=== PATIENT | male | born 1965 | race Caucasian/White ===

== ENCOUNTER → 2021-05-01 10:16 | Outpatient (BNVA) | payer OTHER, SELFPAY | PROVIDERS: PCP Internal Medicine; Visit Provider Internal Medicine | DX: Z51.81 Encounter for therapeutic drug level monitoring (principal); F11.10 Opioid abuse, uncomplicated; F14.10 Cocaine abuse, uncomplicated; F17.200 Nicotine dependence, unspecified, uncomplicated | CPT/HCPCS: 80305 ==

== ENCOUNTER 2021-05-09 11:03 | Outpatient (REF) | payer OTHER, SELFPAY ==
[2021-05-09 13:27] LABS: Fentanyl, urine POSITIVE (Not Detect)
== END 2021-05-09 11:04 | disposition home or self-care (01) ==
LOC: HO.LNP 11:03
PROVIDERS: PCP Internal Medicine; Visit Provider Internal Medicine
DX: F11.10 Opioid abuse, uncomplicated (principal); Z79.899 Other long term (current) drug therapy
CPT/HCPCS: 80305; 80307

== ENCOUNTER 2021-06-18 14:33 | Outpatient (REF) | payer OTHER, SELFPAY ==
[2021-06-18 18:48] LABS: Fentanyl, urine POSITIVE (Not Detect)
== END 2021-06-18 14:34 | disposition home or self-care (01) ==
LOC: HO.LNP 14:33
PROVIDERS: PCP Internal Medicine; Visit Provider Internal Medicine
DX: F11.20 Opioid dependence, uncomplicated (principal); Z79.899 Other long term (current) drug therapy
CPT/HCPCS: 80305; 80307

== ENCOUNTER 2022-09-24 19:48 | Emergency (ER) | payer SELFPAY ==
[2022-09-24 19:51] VITALS: BP 123/78; PULSE 99; RESP 18; TEMP 36.7; O2SAT 94; BMI 43.2
--- NOTE | 2022-09-24 19:56 | ED.UPPEXIN ---
HPI - Extremity Injury (Upper) General Chief Complaint: Wound/Laceration <GISSELLE Khan - Last Filed: 09/24/22 19:58> Stated Complaint: finger injury <GISSELLE Khan - Last Filed: 09/24/22 19:58> Time Seen by Provider: 09/24/22 20:41 <GISSELLE Khan - Last Filed: 09/24/22 19:58> Source: patient <Yan Harris MD - Last Filed: 09/24/22 21:52> Mode of arrival: ambulatory <Yan Harris MD - Last Filed: 09/24/22 21:52> Limitations: no limitations <Yan Harris MD - Last Filed: 09/24/22 21:52> History of Present Illness HPI narrative: She got superficial laceration right index finger earlier today while trying to remove can from his blower blast furnace earlier today patient clean the wound at home and applied bacitracin ointment <Yan Harris MD - Last Filed: 09/24/22 21:52> Related Data Home Medications: Home Medications Medication Instructions Recorded Confirmed ibuprofen 600 mg tablet 600 mg PO Q8H PRN 05/01/21 Previous Rx's Medication Instructions Recorded buprenorphine 8 mg-naloxone 2 mg 2 film sublingual DAILY 7 days #14 06/18/21 sublingual film (Suboxone) ea <GISSELLE Khan - Last Filed: 09/24/22 19:58> Allergies/Adverse Reactions: Allergies Allergy/AdvReac Type Severity Reaction Status Date / Time No Known Allergies Allergy Verified 06/18/21 14:55 [No Known Allergies*] <GISSELLE Khan - Last Filed: 09/24/22 19:58> Review of Systems Review of Systems: Yes all other systems are reviewed and are negative <Yan Harris MD - Last Filed: 09/24/22 21:52> [facility] Past Medical History Medical History: Medical History Cocaine abuse Heroin use disorder, mild, abuse Opioid use disorder Pneumonia Tobacco use disorder <GISSELLE Khan - Last Filed: 09/24/22 19:58> Surgical History: Surgical History Hx of foot surgery <GISSELLE Khan - Last Filed: 09/24/22 19:58> Family History Family History: Family History Father Heart attack Alcoholism <GISSELLE Khna - Last Filed: 09/24/22 19:58> Social History Social History: Social History Household Members: Spouse and Children Housing: House Alcohol intake: current Patient Tobacco Use Status: Current everyday Tobacco user Cigarettes Per Day: 15 Years Smoked: 20 Substance Use Type: Crack/Cocaine and Other Advance Directives: No Advance Directives Information Provided: Yes <GISSELLE Khan - Last Filed: 09/24/22 19:58> Physical Exam Vital Signs: Vital Signs: Last Vital Signs Temp 97.9 F 09/24/22 20:43 Pulse 96 09/24/22 20:43 Resp 18 09/24/22 20:43 BP 120/69 09/24/22 20:43 Pulse Ox 95 09/24/22 20:43 O2 Del Method 09/24/22 20:43 BMI result Body Mass Index 43.2 <GISSELLE Khan - Last Filed: 09/24/22 19:58> Vital Signs: Last Vital Signs Temp 97.9 F 09/24/22 20:43 Pulse 96 09/24/22 20:43 Resp 18 09/24/22 20:43 BP 120/69 09/24/22 20:43 Pulse Ox 95 09/24/22 20:43 O2 Del Method 09/24/22 20:43 BMI result Body Mass Index 43.2 <Yan Harris MD - Last Filed: 09/24/22 21:52> Appearance: Alert. Oriented X3. No acute distress. ENT: Pharynx normal. Oral Mucosa moist Neck: Normal inspection. Neck supple. CVS: Normal heart rate and rhythm. Respiratory: No respiratory distress. Skin: Skin warm and dry. Normal skin color. Normal skin turgor. Extremities: No lower extremity edema. Laceration right index finger Neuro: Oriented X 3. <Yan Harris MD - Last Filed: 09/24/22 21:52> Const: General: cooperative <Yan Harris MD - Last Filed: 09/24/22 21:52> Extrem: Hand/finger images: 1. Superficial flap laceration 3 cm long neurovascular intact <GISSELLE Khan - Last Filed: 09/24/22 19:58> Hand/finger images: 1. Superficial flap laceration 3 cm long neurovascular intact <Yan Harris MD - Last Filed: 09/24/22 21:52> Course Course Course Narrative: RME--57 yo M w/no sig PMHx c/o two lacerations to R index finger after getting can out of snowblower this AM 2 superficial lacerations to R index finger palmar aspect, cleaning and full exam will be done by ED provider. Tetanus unknown Tdap & Lido ordered <GISSELLE Khan - Last Filed: 09/24/22 19:58> Medications Administered Discontinued Medications Generic Name Dose Route Start Last Admin Trade Name Freq PRN Reason Stop Dose Admin Bacitracin 1 appl 09/24/22 21:21 09/24/22 21:27 Bacitracin Oint 0.9 Gm Packet TOPICAL 09/24/22 21:22 1 appl ONCE ONE Administration Protocol Diphtheria/Tetanus/Acell Pertussis 0.5 ml 09/24/22 19:56 09/24/22 20:40 Diphth,Pertus(Acell),Tet Adult 0.5 Ml Syringe IM 09/24/22 19:57 0.5 ml .ONCE ONE Administration Lidocaine HCl 5 ml 09/24/22 19:56 09/24/22 21:07 Lidocaine Hcl 1 % Mpf 5 Ml Vial INFILTRATI 09/24/22 19:57 5 ml ONCE ONE Administration <GISSELLE Khan - Last Filed: 09/24/22 19:58> Medications Administered Discontinued Medications Generic Name Dose Route Start Last Admin Trade Name Freq PRN Reason Stop Dose Admin Bacitracin 1 appl 09/24/22 21:21 09/24/22 21:27 Bacitracin Oint 0.9 Gm Packet TOPICAL 09/24/22 21:22 1 appl ONCE ONE Administration Protocol Diphtheria/Tetanus/Acell Pertussis 0.5 ml 09/24/22 19:56 09/24/22 20:40 Diphth,Pertus(Acell),Tet Adult 0.5 Ml Syringe IM 09/24/22 19:57 0.5 ml .ONCE ONE Administration Lidocaine HCl 5 ml 09/24/22 19:56 09/24/22 21:07 Lidocaine Hcl 1 % Mpf 5 Ml Vial INFILTRATI 09/24/22 19:57 5 ml ONCE ONE Administration <Yan Harris MD - Last Filed: 09/24/22 21:52> Procedures Laceration Laceration 1: Site: hand <Yan Harris MD - Last Filed: 09/24/22 21:52> Side (If applicable): right <Yan Harris MD - Last Filed: 09/24/22 21:52> Size (cm): 3 <Yan Harris MD - Last Filed: 09/24/22 21:52> Description: flap <Yan Harris MD - Last Filed: 09/24/22 21:52> Depth: simple, single layer <Yan Harris MD - Last Filed: 09/24/22 21:52> Local Anesthetic: lidocaine 1% <Yan Harris MD - Last Filed: 09/24/22 21:52> Amount of anesthesia used (mL): 4 <Yan Harris MD - Last Filed: 09/24/22 21:52> Skin layer closed with: vicryl <Yan Harris MD - Last Filed: 09/24/22 21:52> Size (cm): 5-0 <Yan Harris MD - Last Filed: 09/24/22 21:52> Number of sutures: 6 <Yan Harris MD - Last Filed: 09/24/22 21:52> Technique: simple, interrupted <Yan Harris MD - Last Filed: 09/24/22 21:52> Discharge Plan Discharge Clinical Impression: Laceration <GISSELLE Khan - Last Filed: 09/24/22 19:58> Patient Disposition: Home, Self-Care <GISSELLE Khan - Last Filed: 09/24/22 19:58> Instructions: Finger Laceration (ED) <GISSELLE Khan - Last Filed: 09/24/22 19:58> Additional Instructions: Local care as advised Sutures will dissolve of their own <GISSELLE Khan - Last Filed: 09/24/22 19:58> Prescriptions: No Action ibuprofen 600 mg tablet 600 mg PO Q8H PRN buprenorphine-naloxone [Suboxone] 8-2 mg film 2 film sublingual DAILY 7 Days Qty: 14 0RF Rx Instructions: place 1 strip/tab under (each) side of tongue <GISSELLE Khan - Last Filed: 09/24/22 19:58>
[2022-09-24] MEDS: Diphth,Pertus(ACell),Tet Adult 0.5 ML SYRINGE IM (20:40)
[2022-09-24 20:43] VITALS: BP 120/69; PULSE 96; RESP 18; TEMP 36.6; O2SAT 95
[2022-09-24] MEDS: Lidocaine HCl 1 % MPF 5 ML VIAL INFILTRATI (21:07)
[2022-09-24] MEDS: Bacitracin Oint 0.9 GM PACKET 1 APPL TOPICAL (21:27)
--- NOTE | 2022-09-24 21:29 | PC.NURSE ---
lac to R pointer finger from grease can this morning, finger continues to bleed
--- NOTE | 2022-09-24 21:29 | PC.NURSE ---
pt aox4, no apparent distress, resting quietly while on cell phone
--- NOTE | 2022-09-25 00:10 | PC.NURSE ---
Discharge instructions given/explained to patient No apparent distress Ambulates safely/independently All of patient's questions answered
== END 2022-09-24 22:43 | disposition home or self-care (01) ==
PROVIDERS: Emergency Provider Internal Medicine; PCP Specialist
DX: S61.210A Laceration without foreign body of right index finger without damage to nail, initial encounter (principal); W26.8XXA Contact with other sharp object(s), not elsewhere classified, initial encounter; F11.20 Opioid dependence, uncomplicated; F17.210 Nicotine dependence, cigarettes, uncomplicated; Y93.29 Activity, other involving ice and snow; Y92.017 Garden or yard in single-family (private) house as the place of occurrence of the external cause; Y99.9 Unspecified external cause status
CPT/HCPCS: 12002; 90471; 90715; 99284

== ENCOUNTER 2024-01-07 15:57 | Outpatient (AMB) | payer MEDICAID, SELFPAY ==
--- NOTE | 2024-01-07 16:13 | A.OFFVISCC_ITS ---
Vital Signs 01/07/24 16:28 BP 150/90 H Blood Pressure Location Rt radial Position Sitting Respiration 19 Pulse 51 Pulse Source Pulse Oximeter Pulse Oximetry (%) 89 L Intake Visit Reasons: Walk in-Intake Allergies No Known Allergies [No Known Allergies*] Allergy (Verified 06/18/21 14:55) HPI HPI Walk in-Intake: Details: Patient presents as walk in with his for evaluation and treatment of OUD Patient extremely irritable and overall discourteous to all staff in office In brief he reports splitting a pack of heroin with his every 5 days Last use 7 days ago per his report Would like to start suboxone Familiar with medication [facility] Medical History Cocaine abuse Heroin use disorder, mild, abuse Opioid use disorder Pneumonia Tobacco use disorder Surgical History Hx of foot surgery Family History Father Heart attack Alcoholism Social History Household Members: Spouse and Children Housing: House Alcohol intake: unknown Patient Tobacco Use Status: Current everyday Tobacco user Cigarettes Per Day: 15 Years Smoked: 20 Substance Use Type: Crack/Cocaine and Other Review of Systems Const Details: how do you think I feel? Physical Exam Vital Signs: Last Vital Signs Pulse 51 01/07/24 16:28 Resp 19 01/07/24 16:28 BP 150/90 H 01/07/24 16:28 Pulse Ox 89 L 01/07/24 16:28 Const General: poor hygiene Nutritional Appearance: overweight Psych Speech and movement: Clear speech present Affect: Hostile affect present Attitude: Belligerent attititude/behavior present Results AMB 14 Panel Urine Drug Screen Urine Marijuana (THC) Negative Last Edit by Nidia Barbosa RN on 01/07/24 16:38 Urine Cocaine Negative Last Edit by Nidia Barbosa RN on 01/07/24 16:38 Urine Morphine Negative Last Edit by Nidia Barbosa RN on 01/07/24 16:38 Urine Methamphetamine Negative Last Edit by Nidia Barbosa RN on 01/07/24 16:38 Urine Amphetamine Negative Last Edit by Nidia Barbosa RN on 01/07/24 16:38 Urine Benzodiazepine Negative Last Edit by Nidia Barbosa RN on 01/07/24 16 :38 Urine Barbiturates Negative Last Edit by Nidia Barbosa RN on 01/07/24 16:3 8 Urine Methadone Negative Last Edit by Nidia Barbosa RN on 01/07/24 16:38 Urine Buprenorphine Positive Last Edit by Nidia Barbosa RN on 01/07/24 16: 38 Urine Tricyclic Antidepressant Negative Last Edit by Nidia Barbosa RN on 01/07/24 16:38 Urine MDMA Negative Last Edit by Nidia Barbosa RN on 01/07/24 16:38 Urine Oxycodone Negative Last Edit by Nidia Barbosa RN on 01/07/24 16:38 Urine Phencyclidine Negative Last Edit by Nidia Barbosa RN on 01/07/24 16: 38 Urine Propoxyphene Negative Last Edit by Nidia Barbosa RN on 01/07/24 16:3 8 Results Reviewed Results Reviewed: Laboratory Last Values POC Urine Buprenorphine Positive 01/07/24 16:37 POC Urine Morphine Negative 01/07/24 16:37 POC Urine Oxycodone Negative 01/07/24 16:37 POC Urine Methadone Negative 01/07/24 16:37 POC Urine Propoxyphene Negative 01/07/24 16:37 POC Urine Barbiturates Negative 01/07/24 16:37 POC U Tricyclic Antidpr Negative 01/07/24 16:37 POC Urine PCP Negative 01/07/24 16:37 POC Ur Amphetamines Negative 01/07/24 16:37 POC Ur Methamphetamine Negative 01/07/24 16:37 POC Urine MDMA Negative 01/07/24 16:37 POC Ur Benzodiazepine Negative 01/07/24 16:37 POC Urine Cocaine Negative 01/07/24 16:37 POC Ur Marijuana (THC) Negative 01/07/24 16:37 Assessment & Plan Assessment & Plan (1) Opioid use disorder: Code(s): F11.90 - Opioid use, unspecified, uncomplicated Category: Medical Plan: * subxone 12mg BID * at time of this note, patient had called office several times and left messages on office voicemail that were very strong racially charged ---patient was advised that prescription was at his pharmacy and a list of other providers would be mailed to him as this type of behavior and threatening communication would not be tolerated in our office. Orders: Orders AMB 14 Panel Urine Drug Screen 01/07/24 F11.90 - Opioid use, unspecified, uncomplicated Medications: New buprenorphine-naloxone 12-3 mg (Suboxone) 1 film buccal BID 28 ea 1RF Discontinued buprenorphine-naloxone 8-[address] 1 strip/tab under (each) side of tongue Discontinued Reason: Doctor's Order 2 film sublingual DAILY 7 days 14 ea 0RF
[2024-01-07 16:28] VITALS: BP 150/90; PULSE 51; RESP 19; O2SAT 89
== END 2024-01-07 16:54 | disposition home or self-care (01) ==
PROVIDERS: PCP Specialist; Visit Provider Nurse Practitioner Psychiatric/Mental Health
DX: F11.90 Opioid use, unspecified, uncomplicated (principal)
CPT/HCPCS: 99204

== ENCOUNTER → 2024-01-07 15:57 | Outpatient (BNVA) | payer OTHER, SELFPAY | PROVIDERS: PCP Specialist; Visit Provider Nurse Practitioner Psychiatric/Mental Health | DX: F11.20 Opioid dependence, uncomplicated (principal); F17.210 Nicotine dependence, cigarettes, uncomplicated; Z51.81 Encounter for therapeutic drug level monitoring | CPT/HCPCS: 80305; 99212 ==